=== PATIENT | male | born 1975 | race Caucasian/White ===

== ENCOUNTER 2017-05-29 19:38 | Emergency (ER) | payer OTHER ==
[2017-05-30] MEDS: HYDROCODONE/APAP (5/325) TAB PO (01:10)
[2017-05-30] MEDS: KETOROLAC 60 MG INJ IM (01:10)
== END 2017-05-30 01:21 | disposition home or self-care (01) ==
LOC: FTE 19:38
DX: J06.9 Acute upper respiratory infection, unspecified (principal); J45.909 Unspecified asthma, uncomplicated; F17.210 Nicotine dependence, cigarettes, uncomplicated
CPT/HCPCS: 96372; 99284-25